=== PATIENT | female | born 1970 | race Caucasian/White ===

== ENCOUNTER → 2017-03-18 | Outpatient (CLI) | payer BC ==
[~2017-03-18] MED LIST: CLX20 PO; LRT5 PO; METO-157 PO; MXLUNK PO; ONDA4TAB46 PO; TOPI25TA99 PO; Vitamin D PO
--- NOTE | 2017-03-18 13:03 | MAMMOGRAPHY REPORT ---
BILATERAL DIGITAL SCREENING MAMMOGRAM TOMOSYNTHESIS WITH CAD: 03/18/2017 CLINICAL HISTORY: Routine screening. Patient has no complaints. TECHNIQUE: Breast tomosynthesis in addition to standard 2D mammography was performed. Current study was also evaluated with a Computer Aided Detection (CAD) system. COMPARISON: Comparison is made to exams dated: 09/07/2014 mammogram, 08/22/2013 mammogram, and 2011 mammogram - [facility]. BREAST COMPOSITION: The tissue of both breasts is almost entirely fatty. FINDINGS: No suspicious masses, calcifications, or areas of architectural distortion are noted in e ither breast. There has been no significant interval change compared to prior exams. IMPRESSION: ACR BI-RADS CATEGORY 1: NEGATIVE There is no mammographic evidence of malignancy. A 1 year screening mammogram is recommended. The p atient will receive written notification of the results. Approximately 10% of breast cancers are not detected with mammography. A negative mammographic repor t should not delay biopsy if a clinically suggestive mass is present. Marti Dc M.D. ah/:03/18/2017 12:06:46 Manager [place]: Beata PHELPS)(Alex), [facility] letter sent: Normal 1/2 BI-RADS Code: ACR BI-RADS Category 1: Negative
== END | disposition home or self-care (01) ==
LOC: C.MAMM 11:11
PROVIDERS: ATTEND Internal Medicine
DX: Z12.31 Encounter for screening mammogram for malignant neoplasm of breast (principal)

== ENCOUNTER 2017-12-05 18:55 | Emergency (ER) | payer BC ==
[~2017-12-05] VITALS: Ht 157.5 cm; Wt 103.6 kg
[2017-12-05 19:06] VITALS: TEMP 37.3; Ht 157.5 cm; Wt 103.6 kg
[2017-12-05] MEDS ORDERED: SODIUM CHLORIDE 0.9% 1000ML 1,000 ML IV STA (19:18)
[2017-12-05] MEDS ORDERED: DEXAMETHASONE **PF** INJ 10 MG/ML VIAL IV ONE (19:30)
[2017-12-05] MEDS ORDERED: ALBUT/IPRATROP 3MG/0.5MG NEB 3 ML VIAL INH ONE (19:30)
[2017-12-05 19:45] VITALS: O2SAT 96
--- NOTE | 2017-12-05 19:46 | DIAGNOSTIC IMAGING REPORT ---
CHEST ONE VIEW PORTABLE CLINICAL HISTORY: CHEST PAIN COMPARISON STUDY: Chest radiograph August 24, 2008. FINDINGS: Lung volumes are normal. There is no consolidation to suggest pneumonia and there is no evidence of pulmonary edema. Cardiomediastinal silhouette is normal. Appearance of the chest is unchanged. IMPRESSION: No acute cardiopulmonary findings. Electronically signed by: Amrit Park M.D. 12/05/2017 7:45 PM Dictated Date/Time: 12/05/2017 7:44 PM
[2017-12-05 20:04] LABS: BASO % 0.1 %; BASO ABS # 0.01 K/uL (0-0.2); HEMOGLOBIN 13.8 g/dL (12.0-16.0); IG# 0.02 K/uL (0.00-0.02); LYMPH % 4.4 %; LYMPH ABS # 0.44 K/uL (1.2-3.4); MEAN CELL VOLUME 93.5 fL (80-100); MEAN CORPUSCULAR HEMOGLOBIN 32.2 pg (25-34); MEAN CORPUSCULAR HGB CONC 34.5 g/dl (32-36); MEAN PLATELET VOLUME 11.7 fL (7.4-10.4); MONO % 3.8 %; MONO ABS # 0.38 K/uL (0.11-0.59); NEUT % 91.5 %; NEUT ABS # 9.26 K/uL (1.4-6.5); PLATELET COUNT 188 K/uL (130-400); RED CELL DISTRIBUTION WIDTH CV 13.1 % (11.5-14.5); RED CELL DISTRIBUTION WIDTH SD 44.6 fL (36.4-46.3); WHITE BLOOD COUNT 10.11 K/uL (4.8-10.8)
--- NOTE | 2017-12-05 20:11 | EMERGENCY ROOM VISIT NOTE ---
History Report prepared by Marisela: Zay Taylor Under the Supervision of: Dr. Jese Stringer M.D. First contact with patient: 19:13 Chief Complaint: COUGH Stated Complaint: COUGH, SORETHROAT, EARACHE Nursing Triage Summary: pt c/o cough, sorethroat, right ear pain with loss of hearing , using inhaler but not helping. seen pcp on wednesday History of Present Illness The patient is a 47 year old female who presents to the Emergency Room with complaints of a constant cough that began three days ago. She rates her discomfort as an 8/10 in severity. The patient states that she also has been experiencing a sorethroat, which is worsened with swallowing, and chest tightness. She reports that she has been experiencing ear aches, with her right worse than her left. The patient states that she has also been experiencing mild nausea, but denies any current nausea. The patient states that her eyes have been watering and her right eye is "crusty" when she wakes up. She states that she has not had her normal appetite since the onset of symptoms. She reports that she went to see her physician two days ago who told her her symptoms were due to allergies. The patient states that she was given Prednisone and a Z pack. She reports that she has been taking Tramadol without any relief. The patient denies a history of smoking and COPD, but reports a history of asthma. She reports that she has been using her inhalers more recently. The patient denies chest pain and diarrhea. She reports that she had her flu shot. Source of History: patient Onset: three days ago Position: other (global) Symptom Intensity: 8/10 Quality: other (global) Timing: constant Modifying Factors (Relieving): other (inhaler, Prednisone, Z pack, Tramadol) Associated Symptoms: + sorethroat, No chest pain, No diarrhea Review of Systems See HPI for pertinent positives and negatives. A total of ten systems were reviewed and were otherwise negative. Past Medical & Surgical Medical Problems: (1) Asthma Family History Cancer Diabetes mellitus Heart disease Hypertension Social History Smoking Status: Never Smoker Marital Status: Occupation Status: unemployed Current/Historical Medications Scheduled Amoxicillin & Pot Clavulanate (Augmentin 875-125 mg), 875 MG PO BID Azithromycin (Zithromax Z-Shaheen), 1 PKT PO UD Metoclopramide (Reglan), 10 MG PO TID PRN Ondansetron Hcl (Zofran), 4 MG PO Q6HR PRN Prednisone (Prednisone), 0 PO UD Rizatriptan Benzoate (Maxalt Unknown Dose), 1 DOSE PO PRN/UD Sertraline (Zoloft), 200 MG PO HS Tolterodine Tartrate (Tolterodine Tartrate ER), 2 MG PO HS Topiramate (Topamax ), 50 MG PO HS Scheduled PRN Cyclobenzaprine Hcl (Flexeril), 10 MG PO DIRECTED PRN for Muscle Spasms Tramadol (Ultram), 50 MG PO Q8H PRN for Pain Allergies Coded Allergies: Diclofenac (Verified Allergy, Mild, ., 09/22/12) Latex1 -Allergic Contact Dermititis (Verified Allergy, Mild, ., 09/22/12) Promethazine (Verified Adverse Reaction, Intermediate, MENTAL ALTERATIONS , JITTERY, "SKIN CRAWLING", 03/24/11) Physical Exam Vital Signs Date Time Temp Pulse Resp B/P (MAP) Pulse Ox O2 Delivery O2 Flow Rate FiO2 12/05/17 21:42 100 20 160/81 100 Room Air 12/05/17 20:47 87 12/05/17 20:18 81 16 96 Room Air 12/05/17 19:45 96 Room Air 12/05/17 19:06 37.3 90 22 128/73 96 Room Air Physical Exam GENERAL: Awake, alert, mildly uncomfortable-appearing, in no distress HENT: Normocephalic, atraumatic. Dry mucous membranes. Mild ejection in posterior oropharynx, no edema, no erythema. Mild ejection in the right TM. No mastoid tenderness. EYES: Normal conjunctiva. Sclera non-icteric. NECK: Supple. No nuchal rigidity. FROM. No JVD. RESPIRATORY: Scattered rhonchi and wheezes throughout. CARDIAC: Regular rate, normal rhythm. Extremities warm and well perfused. Pulses equal. ABDOMEN: Soft, non-distended. No tenderness to palpation. No rebound or guarding. No masses. RECTAL: Deferred. MUSCULOSKELETAL: Chest examination reveals no tenderness. The back is symmetrical on inspection without obvious abnormality. There is no CVA tenderness to palpation. No joint edema. LOWER EXTREMITIES: Calves are equal size bilaterally and non-tender. No edema. No discoloration. NEURO: Normal sensorium. No sensory or motor deficits noted. SKIN: No rash or jaundice noted. Medical Decision & Procedures ER Provider Diagnostic Interpretation: X-ray: Per my interpretation, radiologist review. CHEST ONE VIEW PORTABLE CLINICAL HISTORY: CHEST PAIN COMPARISON STUDY: Chest radiograph August 24, 2008. FINDINGS: Lung volumes are normal. There is no consolidation to suggest pneumonia and there is no evidence of pulmonary edema. Cardiomediastinal silhouette is normal. Appearance of the chest is unchanged. IMPRESSION: No acute cardiopulmonary findings. Electronically signed by: Amrit Park M.D. 12/05/2017 7:45 PM Dictated Date/Time: 12/05/2017 7:44 PM Laboratory Results 12/05/17 19:45 Red Blood Count 4.28, Mean Corpuscular Volume 93.5, Mean Corpuscular Hemoglobin 32.2, Mean Corpuscular Hemoglobin Concent 34.5, Mean Platelet Volume 11.7, Neutrophils (%) (Auto) 91.5, Lymphocytes (%) (Auto) 4.4, Monocytes (%) (Auto) 3.8, Eosinophils (%) (Auto) 0.0, Basophils (%) (Auto) 0.1, Neutrophils # (Auto) 9.26, Lymphocytes # (Auto) 0.44, Monocytes # (Auto) 0.38, Eosinophils # (Auto) 0.00, Basophils # (Auto) 0.01 12/05/17 19:45 Test 12/05/17 19:45 12/05/17 19:59 White Blood Count 10.11 K/uL (4.8-10.8) Red Blood Count 4.28 M/uL (4.2-5.4) Hemoglobin 13.8 g/dL (12.0-16.0) Hematocrit 40.0 % (37-47) Mean Corpuscular Volume 93.5 fL (80-100) Mean Corpuscular Hemoglobin 32.2 pg (25-34) Mean Corpuscular Hemoglobin Concent 34.5 g/dl (32-36) Platelet Count 188 K/uL (130-400) Mean Platelet Volume 11.7 fL (7.4-10.4) Neutrophils (%) (Auto) 91.5 % Lymphocytes (%) (Auto) 4.4 % Monocytes (%) (Auto) 3.8 % Eosinophils (%) (Auto) 0.0 % Basophils (%) (Auto) 0.1 % Neutrophils # (Auto) 9.26 K/uL (1.4-6.5) Lymphocytes # (Auto) 0.44 K/uL (1.2-3.4) Monocytes # (Auto) 0.38 K/uL (0.11-0.59) Eosinophils # (Auto) 0.00 K/uL (0-0.5) Basophils # (Auto) 0.01 K/uL (0-0.2) RDW Standard Deviation 44.6 fL (36.4-46.3) RDW Coefficient of Variation 13.1 % (11.5-14.5) Immature Granulocyte % (Auto) 0.2 % Immature Granulocyte # (Auto) 0.02 K/uL (0.00-0.02) Anion Gap 9.0 mmol/L (3-11) Est Creatinine Clear Calc Drug Dose 75.5 ml/min Estimated GFR () 74.1 Estimated GFR (Non- 63.9 BUN/Creatinine Ratio 9.4 (10-20) Calcium Level 8.5 mg/dl (8.5-10.1) Total Bilirubin 0.5 mg/dl (0.2-1) Direct Bilirubin 0.1 mg/dl (0-0.2) Aspartate Amino Transf (AST/SGOT) 8 U/L (15-37) Alanine Aminotransferase (ALT/SGPT) 14 U/L (12-78) Alkaline Phosphatase 78 U/L (45-117) Troponin I < 0.015 ng/ml (0-0.045) Total Protein 7.2 gm/dl (6.4-8.2) Albumin 3.5 gm/dl (3.4-5.0) Lipase 123 U/L (73-393) Influenza Type A (RT-PCR) Neg for Influ A (NEG) Influenza Type A Antigen Neg for Influ A (NEG) Influenza Type B Antigen Neg for Influ B (NEG) Influenza Type B (RT-PCR) Neg for Influ B (NEG) Laboratory results reviewed by me Medications Administered Medications (Trade) Dose Ordered Sig/Barbara Route Start Time Stop Time Status Last Admin Dose Admin Albuterol/ Ipratropium (Duoneb) 12 ml ONE ONCE INH 12/05/17 19:30 12/05/17 19:31 DC 12/05/17 20:16 12 ML Sodium Chloride 1,000 ml @ 999 mls/hr Q1H1M STAT IV 12/05/17 19:18 12/05/17 20:18 DC 12/05/17 19:55 999 MLS/HR Dexamethasone Sodium Phosphate (Dexamethasone Inj Pf) 10 mg NOW ONCE IV 12/05/17 19:30 12/05/17 19:31 DC 12/05/17 19:47 10 MG Amoxicillin/ Clavulanate Potassium (Augmentin Tab) 875 mg NOW STAT PO 12/05/17 21:27 12/05/17 21:29 DC 12/05/17 21:27 875 MG Amoxicillin/ Clavulanate Potassium (Augmentin Tab) 875 mg NOW STAT PO 12/05/17 21:27 12/05/17 21:29 DC 12/05/17 21:27 875 MG ECG Indication: nausea Rate (beats per minute): 80 Rhythm: normal sinus Findings: no acute ischemic change, other (Normal axis) ED Course 1915: The patient was evaluated in room B08. A complete history and physical exam was performed. 2117: I reevaluated the patient and she is feeling better. Discussed results and discharge instructions: She verbalized understanding and agreement. The patient is ready for discharge. Medical Decision I reviewed the patient's past medical history, medications, and the nursing notes as described above. The patient's presentation and history were concerning for Pneumonia, bronchitis , pharyngitis, otitis media, influenza, viral syndrome, ACS, CHF, PE, dehydration, and electrolyte abnormalities. The patient is a 47-year-old woman with a past medical history of asthma presents emergency department with cough congestion shortness of breath, right ear pain and sore throat ongoing for the past 4 days per hpi. Arrival the patient is no acute distress, afebrile with stable vital signs. She has scattered wheezes and rhonchi. Labs unremarkable including WBC within normal limits.. Influenza screen negative, PCR pending. Chest x-ray negative for pneumonia. Given persistent symptoms despite completing a Z-Shaheen will treat with Augmentin which will cover the patient's otitis media as well as possible strep pharyngitis and bronchitis. She did improved after steroids, continuous neb. She will follow-up with her PCP tomorrow. Findings and plan for follow-up reviewed with patient. Patient agreeable and d/c'd per discharge instructions. Medication Reconcilliation Current Medication List: was personally reviewed by me Blood Pressure Screening Patient's blood pressure: Normal blood pressure Impression Primary Impression: Acute bronchitis Additional Impression: Otitis media Scribe Attestation The scribe's documentation has been prepared under my direction and personally reviewed by me in its entirety. I confirm that the note above accurately reflects all work, treatment, procedures, and medical decision making performed by me. Departure Information Dispostion Home / Self-Care Prescriptions Amoxicillin & Pot Clavulanate (Augmentin 875-125 mg) 1 Tab Tab 875 MG PO BID for 7 Days, #14 TAB Prov: Jese Stringer M.D. 12/05/17 Referrals No Doctor, Assigned (PCP) Patient Instructions Bronchitis Acute, ED Bronchitis Asthmatic, ED Otitis Media Acute Adult, My [facility] Additional Instructions Please follow up with your primary care physician in the next 1-3 days for re- evaluation. You likely have a bronchitis and ear infection. Otherwise, your exam, EKG, chest xray, and lab results did not show signs of an emergent condition at this time. Augmentin as directed. Florastor, probiotic, to help prevent antibiotic associated diarrhea. Continue your current prednisone taper. Use your home inhaler 2 puffs every 4 hours for the next 48 hours and then as needed thereafter. Return to the emergency department for worsening symptoms as described in the accompanying instructions. Problem Qualifiers
[2017-12-05 20:18] VITALS: PULSE 81; O2SAT 96
[2017-12-05 20:28] LABS: ALBUMIN 3.5 gm/dl (3.4-5.0); ALT/SGPT 14 U/L (12-78); BLOOD UREA NITROGEN 10 mg/dl (7-18); CALCIUM 8.5 mg/dl (8.5-10.1); CARBON DIOXIDE 20 mmol/L (21-32); CREATININE 1.04 mg/dl (0.60-1.20); GLUCOSE 125 mg/dl (70-99); LIPASE 123 U/L (73-393); POTASSIUM 3.6 mmol/L (3.5-5.1); SODIUM 138 mmol/L (136-145)
[2017-12-05 20:32] LABS: ALKALINE PHOSPHATASE 78 U/L (45-117); AST/SGOT 8 U/L (15-37); TOTAL PROTEIN 7.2 gm/dl (6.4-8.2)
[2017-12-05 20:38] LABS: INFLUENZA B ANTIGEN Neg for Influ B (NEG)
[2017-12-05] MEDS ORDERED: TOLT1CAP6 PO (20:46)
[2017-12-05] MEDS ORDERED: AZITTAB PO (20:46)
[2017-12-05] MEDS ORDERED: PRED10TA PO (20:46)
[2017-12-05] MEDS ORDERED: CYCL10TA6 PO (20:46)
[2017-12-05] MEDS ORDERED: SERT-234 PO (20:46)
[2017-12-05] MEDS ORDERED: TRAM-10 PO (20:46)
[2017-12-05] MEDS ORDERED: AMOX875T PO (21:07)
[2017-12-05 21:16] LABS: INFLUENZA A PCR Neg for Influ A (NEG); INFLUENZA B PCR Neg for Influ B (NEG)
[2017-12-05] MEDS ORDERED: AMOXICILLIN/CLAVULANATE TAB 875 MG TAB PO STA ×2 (21:27)
[2017-12-05 21:42] VITALS: BP 160/81; PULSE 100; O2SAT 100
== END 2017-12-05 21:49 | disposition home or self-care (01) ==
LOC: C.EDB 18:56
DX: J20.9 Acute bronchitis, unspecified (principal); J45.909 Unspecified asthma, uncomplicated; Z83.3 Family history of diabetes mellitus; Z82.49 Family history of ischemic heart disease and other diseases of the circulatory system